=== PATIENT | male | born 1955 | race Caucasian/White ===

== ENCOUNTER 2022-02-07 09:31 | Day surgery (SDC) | payer BC ==
[~2022-02-07] VITALS: Ht 172.7 cm; Wt 86.5 kg
[2022-02-07 09:56] VITALS: BP 115/71; PULSE 63; TEMP 97.7
[2022-02-07] MEDS ORDERED: CRESTOR5 MG PO (09:59)
[2022-02-07] MEDS ORDERED: B-121000 MCG PO (10:00)
[2022-02-07] MEDS ORDERED: OMEGA-3 1000 MG1 CAP PO (10:01)
[2022-02-07 11:00] VITALS: BP 101/66; PULSE 66; TEMP 97.5
[2022-02-07 11:15] VITALS: BP 112/73; PULSE 62
[2022-02-07 11:24] VITALS: BP 113/69; PULSE 59
--- NOTE | 2022-02-07 11:35 | NUR ---
1100 Pt returns from endo procedure via cart and RN assist to [facility]. Pt ambulates from cart to recliner with RN assist. Monitors on and alarms set. Call light within reach. Report received from JULIANA Vazquez. Pt alert and oriented. Pt requests water and muffin. Pt denies any pain or nausea. Pt's present in room. 1120 Pt taking food and drink well. No complications noted. 1125 Discharge instructions given to pt and pt's . All questions answered to their satisfaction. Handed to pt are a thank you card and discharge information. 1135 Pt transferred out of the hospital via wheelchair and this RN assist, to private vehicle driven by pt's .
== END 2022-02-07 11:35 | disposition home or self-care (01) ==
LOC: SDCO 09:31
DX: Z12.11 Encounter for screening for malignant neoplasm of colon (principal); E66.9 Obesity, unspecified; Z87.891 Personal history of nicotine dependence; K57.30 Diverticulosis of large intestine without perforation or abscess without bleeding
CPT/HCPCS: J2704; J7120